=== PATIENT | female | born 1995 | race Caucasian/White ===

== ENCOUNTER 2024-02-01 08:10 | Inpatient (IN) | payer MEDICAID ==
[~2024-02-01] VITALS: Ht 167.6 cm; Wt 99.8 kg
[2024-02-01] VITALS: BP_SYST 100; PULSE 70; RESP 18; TEMP 97.8; O2SAT 98
[2024-02-01 08:10] VITALS: BP_SYST 120; PULSE 92; RESP 16; TEMP 97.2; O2SAT 100
[2024-02-01] MEDS ORDERED: iohexoL 350 mgI/mL, 100 ML INFUS..BTL IV ONE (08:18)
[2024-02-01] MEDS ORDERED: LORazepam 2 MG/ML VIAL ONE (08:26)
[2024-02-01] MEDS ORDERED: levETIRAcetam 1,000 MG in NS 90 ML IV ONE (08:45)
[2024-02-01 09:06] LABS: BASOPHILS % (AUTO) 0.6 % (0.0-2.0); EOSINOPHILS # (AUTO) 0.1 K/uL (0.0-0.4); EOSINOPHILS % (AUTO) 1.7 % (0.0-4.0); HEMATOCRIT 37.9 % (36-48); HEMOGLOBIN 12.7 g/dL (12.0-16.0); LYMPHOCYTES # (AUTO) 2.4 K/uL (1.0-5.5); LYMPHOCYTES % (AUTO) 33.8 % (20.5-51.5); MEAN CORPUSCULAR HEMOGLOBIN 29 pg (27-31); MEAN CORPUSCULAR HGB CONC 34 % (32-36); MEAN CORPUSCULAR VOLUME 85 fL (79.0-98.0); MONOCYTES # (AUTO) 0.5 K/uL (0.0-1.0); MONOCYTES % (AUTO) 7.4 % (1.7-9.3); NEUTROPHILS # (AUTO) 4.1 K/uL (1.8-7.7); NEUTROPHILS % (AUTO) 56.5 % (40.0-70.0); PLATELET COUNT (AUTO) 233 K/uL (130-430); RED BLOOD CELL COUNT(AUTO) 4.44 MIL/uL (4.2-6.2); RED CELL DISTRIBUTION WIDTH 13.2 % (9.0-15.0); WHITE BLOOD COUNT (AUTO) 7.2 K/uL (4.8-10.8)
[2024-02-01] MEDS: LORazepam 2 MG/ML VIAL IVP ONE (09:06)
[2024-02-01 09:25] LABS: ANION GAP 12 (5-15); CALCIUM 8.3 mg/dL (8.4-11.0); CARBON DIOXIDE 23 mmol/L (23-29); CHLORIDE 104 mmol/L (98-107); CREATININE 0.68 mg/dL (0.55-1.30); GFR AFRICAN AMERICAN 132 mL/min (>90); GLUCOSE 103 mg/dL (74-106); POTASSIUM 3.4 mmol/L (3.5-5.1); SODIUM SERUM 139 mmol/L (136-145); UREA NITROGEN, BLOOD 9 mg/dL (8-21)
[2024-02-01] MEDS: levETIRAcetam 1,000 MG IV BAG 100 ML IV ONE (09:26)
[2024-02-01 09:33] LABS: GFR NON AFRICAN-AMERICAN 109 mL/min (>90)
[2024-02-01 09:34] LABS: ALANINE AMINOTRANSFERASE 7 U/L (12-78); ALBUMIN 3.2 g/dL (3.4-4.8); ASPARTATE AMINOTRANSFERASE 6 U/L (10-37); BILIRUBIN,DIRECT 0.1 mg/dL (0.0-0.3); CREATINE KINASE, TOTAL 50 U/L (26-192); TOTAL BILIRUBIN 0.4 mg/dL (0.0-1.0); TOTAL PROTEIN, SERUM 6.6 g/dL (6.4-8.3)
[2024-02-01 09:35] LABS: ALCOHOL, BLOOD < 3 mg/dL (<10); PROTHROMBIN TIME 10.4 SECS (9.5-12.5)
[2024-02-01] MEDS ORDERED: LORazepam 2 MG/ML VIAL IVP PRN (11:00)
[2024-02-01] MEDS: LR 1,000 ML IV SCH (11:52)
[2024-02-01] MEDS: ONDANSETRON HCL 4 MG/2 ML VIAL IVP ONE (12:03)
[2024-02-01 12:09] VITALS: BP_SYST 109; PULSE 66; RESP 16; TEMP 97.7
[2024-02-01] MEDS ORDERED: ONDANSETRON HCL 4 MG/2 ML VIAL IVP PRN (13:15)
[2024-02-01] MEDS: POTASSIUM CHLORIDE 20 MEQ TABLET.ER PO ONE (15:39)
[2024-02-01] MEDS: ACETAMINOPHEN 325 MG TABLET PO PRN (15:40)
[2024-02-01 17:18] LABS: BILIRUBIN,URINE NEGATIVE (NEGATIVE); BLOOD, URINE 3+ (NEGATIVE); COLOR,URINE RED (YELLOW); GLUCOSE,URINE NEGATIVE (NEGATIVE); KETONES,URINE 1+ (NEGATIVE); LEUKOCYTE ESTERASE ,URINE NEGATIVE (NEGATIVE); NITRITE, URINE POSITIVE (NEGATIVE); PH,URINE 8.5 (5.0-8.0); PROTEIN URINE 2+ (NEGATIVE); UROBILINOGEN,URINE 0.2 (0.2-1.0)
[2024-02-01 17:52] VITALS: O2SAT 96
[2024-02-01 17:52] LABS: CLARITY/URINE SLIGHTLY HAZY (CLEAR)
[2024-02-01 17:57] LABS: BARBITURATE, URINE NEGATIVE (NEG <=200); BENZODIAZEPINE, URINE POSITIVE (NEG <=150); CANNABINOID, URINE NEGATIVE (NEG <=50); COCAINE, URINE NEGATIVE (NEG <=150); METHAMPHETAMINES SCREEN,URINE NEGATIVE (NEG <=500); OPIATE, URINE NEGATIVE (NEG <=100); PHENCYCLIDINE SCREEN,URINE NEGATIVE (NEG <=25); UR TRICYCLIC ANTIDEPRESSANTS NEGATIVE (NEG <=300); URINE AMPHETAMINE NEGATIVE (NEG <=500); URINE METHADONE NEGATIVE (NEG <=200); URINE OXYCODONE SCREEN NEGATIVE (NEG <=100)
[2024-02-01 17:58] LABS: BACTERIA,URINE FEW /HPF (None Seen); MUCUS,URINE 1+ /LPF (None Seen)
[2024-02-01 20:00] VITALS: BP_SYST 100; PULSE 70; RESP 18; TEMP 97.8; O2SAT 98
[2024-02-02] VITALS: BP_SYST 112; PULSE 72; RESP 18; TEMP 98.1; O2SAT 68
[2024-02-02 06:14] LABS: BASOPHILS % (AUTO) 0.4 % (0.0-2.0); EOSINOPHILS % (AUTO) 0.6 % (0.0-4.0); HEMATOCRIT 36.2 % (36-48); HEMOGLOBIN 12.3 g/dL (12.0-16.0); LYMPHOCYTES # (AUTO) 2.8 K/uL (1.0-5.5); LYMPHOCYTES % (AUTO) 32.6 % (20.5-51.5); MEAN CORPUSCULAR HEMOGLOBIN 29 pg (27-31); MEAN CORPUSCULAR HGB CONC 34 % (32-36); MEAN CORPUSCULAR VOLUME 86 fL (79.0-98.0); MONOCYTES # (AUTO) 0.7 K/uL (0.0-1.0); MONOCYTES % (AUTO) 8.1 % (1.7-9.3); NEUTROPHILS # (AUTO) 5.1 K/uL (1.8-7.7); NEUTROPHILS % (AUTO) 58.3 % (40.0-70.0); PLATELET COUNT (AUTO) 230 K/uL (130-430); RED BLOOD CELL COUNT(AUTO) 4.23 MIL/uL (4.2-6.2); RED CELL DISTRIBUTION WIDTH 13.2 % (9.0-15.0); WHITE BLOOD COUNT (AUTO) 8.7 K/uL (4.8-10.8)
[2024-02-02 06:56] LABS: ALBUMIN 3.1 g/dL (3.4-4.8); CALCIUM 8.7 mg/dL (8.4-11.0); CREATININE 0.75 mg/dL (0.55-1.30); FREE T4 (FREE THYROXINE) 0.9 ng/dL (0.6-1.6); POTASSIUM 4.1 mmol/L (3.5-5.1); THYROID STIMULATING HORMONE 1.96 uIu/mL (0.34-4.82); TOTAL BILIRUBIN 0.5 mg/dL (0.0-1.0); TOTAL PROTEIN, SERUM 6.5 g/dL (6.4-8.3)
[2024-02-02 08:00] VITALS: O2SAT 96
[2024-02-02 08:18] VITALS: BP_SYST 107; PULSE 60; RESP 18; TEMP 98
[2024-02-02] MEDS: levETIRAcetam 500 MG TABLET PO SCH (09:39)
[2024-02-02 12:00] VITALS: BP_SYST 111; PULSE 76; RESP 18; TEMP 97
[2024-02-02] MEDS ORDERED: LEVE500T9 PO (13:38)
[2024-02-02 16:00] VITALS: BP_SYST 100; PULSE 56; RESP 18; TEMP 97.8; O2SAT 100
[2024-02-02 20:00] VITALS: BP_SYST 103; PULSE 83; RESP 18; TEMP 97.9; O2SAT 99
[2024-02-03] VITALS: BP_SYST 108; PULSE 65; RESP 18; TEMP 97.8; O2SAT 99
[2024-02-03 08:00] VITALS: BP_SYST 100; PULSE 73; RESP 17; TEMP 97.6; O2SAT 97
[2024-02-03 08:29] VITALS: O2SAT 97
[2024-02-03 16:00] VITALS: BP_SYST 105; PULSE 63; RESP 18; TEMP 97.9; O2SAT 98
[2024-02-03] MEDS ORDERED: ASPI-1457 PO (18:18)
[2024-02-03] MEDS ORDERED: ASPIRIN 81 MG TABLET(ECOTRIN) PO ONE (18:30)
[2024-02-03 19:03] VITALS: BP_SYST 105; PULSE 63; RESP 18; TEMP 97.9; O2SAT 98
== END 2024-02-03 20:19 | disposition home or self-care (01) | DRG 50 ==
LOC: SED 08:10 → STU 10:57
PROVIDERS: ADMIT Internal Medicine; ATTEND Internal Medicine
PROC: 4A00X4Z Measurement of Central Nervous Electrical Activity, External Approach (ICD-10-PCS; principal; 2024-02-02)
DX: G04.90 Encephalitis and encephalomyelitis, unspecified (principal); I63.9 Cerebral infarction, unspecified; E44.1 Mild protein-calorie malnutrition; G40.209 Localization-related (focal) (partial) symptomatic epilepsy and epileptic syndromes with complex partial seizures, not intractable, without status epilepticus; G81.91 Hemiplegia, unspecified affecting right dominant side; E66.9 Obesity, unspecified; E78.5 Hyperlipidemia, unspecified; Z68.35 Body mass index [BMI] 35.0-35.9, adult; Z79.899 Other long term (current) drug therapy; R47.01 Aphasia
CPT/HCPCS: 36415; 70450-TC; 70496; 70498; 70551; 71045; 80048; 80053; 80061; 80076; 80307; 81000; 81001; 81015; 82550; 84439; 84443; 84484; 84702; 85025; 85610; 85730; 93005; 93306; 95816; 97112-GP; 97116-GP; 97530-GP; 99291; G0378; G0482; J1953; J2060; J2405; Q9967